=== PATIENT | male | born 1985 | race Caucasian/White ===

== ENCOUNTER 2021-04-03 16:32 | Emergency (ER) | payer SELFPAY ==
[2021-04-03 16:45] VITALS: BP 146/90; PULSE 90; RESP 16; TEMP 36.2; O2SAT 97
--- NOTE | 2021-04-03 17:12 | ED.EYEPROB ---
HPI - Eye Problem General Chief complaint: Eye Problems Stated complaint: blurry vision Time Seen by Provider: 04/03/21 17:12 Source: patient History of Present Illness HPI Narrative: 36-year-old male, contact lens user presents to the ER with a 7 day history of -- bilateral eye redness and pain. Photophobia. Watery discharge. No mucopurulent drainage. The patient stopped using his contact lenses at the start of his eye problems. No history of arthritis, inflammatory bowel disease or trauma. chief complaint: eye pain, eye redness and vision change ( Blurred vision) Onset (ago): day(s) ( 7 days ago) Onset description: gradual Duration: constant Location: both eyes Eye Symptoms: redness, pain, foreign body sensation, discharge, blurry vision and photophobia Mechanism: none Severity: moderate If Pain, Quality: burning Associated symptoms: none Treatments Prior to Arrival: none Related Data Allergies Allergy/AdvReac Type Severity Reaction Status Date / Time No Known Allergies Allergy Verified 04/03/21 16:44 Review of Systems Review of Systems: All systems reviewed & are unremarkable except as noted in HPI and below ROS unobtainable: Yes unobtainable due to endotracheal tube Constitutional: Constitutional: Reports as per HPI and Reports no additional constitutional complaints Eyes: Eyes: Reports as per HPI, Reports change in vision and Reports photophobia ENT: Reports system reviewed and no additional complaints, except as documented Cardiovascular: Cardiovascular: Reports as per HPI and Reports no additional cardiovascular complaints Respiratory: Respiratory: Reports as per HPI and Reports no additional respiratory complaints Gastrointestinal: Gastrointestinal: Reports as per HPI and Reports no additional gastrointestinal complaints Genitourinary: Genitourinary: Reports no additional male genitourinary complaints and Reports as per HPI Musculoskeletal: Musculoskeletal: Reports no additional musculoskeletal complaints Integumentary/Breasts: Skin/Breast: Reports system reviewed and no additional complaints, except as docu Neurologic: Reports system reviewed and no additional complaints, except as documented Psychiatric: Psychiatric: Reports no additional psychiatric complaints Endocrine: Endocrine: Reports no additional endocrine complaints Hematologic/Lymphatic: Hematologic/Lymphatic: Reports no additional hematologic/lymphatic complaints Allergic/Immunologic: Allergic/Immunologic: Reports no additional allergic/immunologic complaints PMFSH Past Medical History Medical History (Updated 04/03/21 @ 18:03 by Bubba Resendiz MD) Corneal abrasion Exam Const: General: no acute distress Orientation/consciousness: patient oriented x3 HENMT: Head: normal to inspection and contusion Eyes: Other: conjunctival erythema circum corneal congestion increased fluorescein uptake on both corneas pupillary size is normal. anterior chamber is clear unable to do a funduscopic examination Neck: Neck: normal visual inspection and no lymphadenopathy Chest: Chest palpation & inspection: normal inspection of the chest Resp: Effort & Inspection: normal respiratory effort Auscultation: clear to auscultation bilaterally Cardio: Rate: regular rate Rhythm: regular rhythm GI: Auscultation: normal bowel sounds : Testes: Testes normal Back/Spine/Pelvis: Back: no CVA tenderness Skin: General skin exam: normal color Rashes: no rashes Neuro: General: patient oriented x3, moves all extremities, no meningeal signs, no focal motor deficits and CN's II-XI intact bilaterally Extrem: General: normal to inspection Psych: Appearance: grossly normal Mental Status: mental status grossly normal Affect: normal affect Course Course Emergency Course: 1% lidocaine instilled in both eyes. Fluorescein strips placed in the eye increased uptake in both corneas. Vital Signs Vital signs: Vital Signs
[2021-04-03] MEDS: TETRACAINE HCL 0.5% OPHTH SOLN 4 ML BTL 1 DROP EACH EYE (17:35)
[2021-04-03] MEDS: FLUORESCEIN SOD 1 MG/STRIP EACH EYE (17:41)
[2021-04-03] MEDS: FLUORESCEIN SOD 1 MG/STRIP (17:42)
[2021-04-03] MEDS: DACRIOSE EYE IRRIGATION 118 ML BOTTLE (17:45)
== END 2021-04-03 18:20 | disposition home or self-care (01) ==
PROVIDERS: Emergency Provider Internal Medicine Critical Care Medicine
DX: H20.9 Unspecified iridocyclitis (principal); S05.00XA Injury of conjunctiva and corneal abrasion without foreign body, unspecified eye, initial encounter; H10.33 Unspecified acute conjunctivitis, bilateral
CPT/HCPCS: 99283; A9270

== ENCOUNTER 2024-04-04 16:23 | Emergency (ER) | payer SELFPAY ==
--- NOTE | ~2024-04-04 | XR_ITS ---
EXAMINATION: XR elbow LT min 3V DATE: 04/04/2024 17:01 INDICATION: Left elbow injury. Fall. TECHNIQUE: 3 views of left elbow were obtained. COMPARISON: None. FINDINGS: Bone alignment is normal. No fracture. Joint spaces are normal. No elbow joint effusion. Th ere is soft tissue swelling overlying the olecranon. IMPRESSION: 1. No fracture. Reviewed, dictated and finalized at location A. DRYING MACHINE OPERATOR IMPRESSION: 1. No fracture.
[2024-04-04 16:24] VITALS: BP 163/109; PULSE 88; RESP 16; TEMP 36.6; O2SAT 98
--- NOTE | 2024-04-04 16:34 | ED_ITS ---
HPI - Extremity Injury (Upper) General Chief Complaint: Extremity Injury, Upper Stated Complaint: left arm injury Time Seen by Provider: 04/04/24 16:34 Source: patient Mode of arrival: ambulatory Limitations: no limitations History of Present Illness HPI narrative: Patient is a 39-year-old male with a left elbow pain. Patient fell on the ice a week ago. He landed on his left elbow. No other injuries. complaint: injury to: left and elbow Onset (ago): week(s) ( One) Other injuries: none Place: outdoors Severity: moderate Severity scale (1-10): 6 Relieving factors: immobilization Exacerbating factors: movement of extremity Context: fall and direct blow Associated symptoms: denies other symptoms Related Data Allergies Allergy/AdvReac Type Severity Reaction Status Date / Time No Known Allergies Allergy Verified 04/04/24 16:26 Review of Systems Review of Systems: All systems reviewed & are unremarkable except as noted in HPI and below Constitutional: Constitutional: Reports no additional constitutional complaints Eyes: Eyes: Reports no additional eye complaints ENT: Reports system reviewed and no additional complaints, except as documented Cardiovascular: Cardiovascular: Reports no additional cardiovascular complaints Respiratory: Respiratory: Reports no additional respiratory complaints Gastrointestinal: Gastrointestinal: Reports no additional gastrointestinal complaints Genitourinary: Genitourinary: Reports no additional male genitourinary complaints Musculoskeletal: Musculoskeletal: Reports no additional musculoskeletal complaints Integumentary/Breasts: Skin/Breast: Reports system reviewed and no additional complaints, except as docu Neurologic: Reports system reviewed and no additional complaints, except as documented Psychiatric: Psychiatric: Reports no additional psychiatric complaints Endocrine: Endocrine: Reports no additional endocrine complaints Hematologic/Lymphatic: Hematologic/Lymphatic: Reports no additional hematologic/lymphatic complaints Allergic/Immunologic: Allergic/Immunologic: Reports no additional allergic/immunologic complaints PMFSH Past Medical History Medical History Corneal abrasion Exam Const: General: healthy appearing Nutritional Appearance: well nourished Orientation/consciousness: patient oriented x3 HENMT: Head: normal to inspection Ears: external ears normal Fa ce/Nose/Sinus: Normal external nose present Eyes: Conjunctivae: conjunctivae normal Pupils: Equal, round and reactive pupils present EOM: EOMs intact bilaterally Neck: Neck: normal visual inspection Chest: Chest palpation & inspection: normal inspection of the chest Resp: Effort & Inspection: normal respiratory effort and not labored Auscultation: clear to auscultation bilaterally and no crackles Cardio: Rate: regular rate Rhythm: regular rhythm Heart sounds: no murmurs GI: Inspection: non-distended GI Palp: Yes Soft to palpation and No Tenderness to palpation present (GI) Auscultation: normal bowel sounds : General: Yes bladder normal to palpation Back/Spine/Pelvis: Back: no CVA tenderness Skin: General skin exam: normal color Rashes: no rashes Wounds: no wounds Other: swollen left elbow with slight ecchymosis Neuro: General: patient oriented x3 Cranial nerves: Yes Nystagmus not present Speech: normal speech Extrem: General: abnormal to inspection Other: left double is swollen and tender to palpation with ecchymosis and bursitis swelling Psych: Mental Status: mental status grossly normal Affect: normal affect Attitude: cooperative Course Vital Signs Vital signs: Vital Signs Temperature 36.6 C 04/04/24 16:24 Pulse Rate 88 04/04/24 16:24 Respiratory Rate 16 04/04/24 16:24 Blood Pressure 163/109 H 04/04/24 16:24 Pulse Oximetry 98 04/04/24 16:24 Oxygen Delivery Room Air 04/04/24 16:24 Temperature 36.6 C 04/04/24 16:24 Pulse Rate 88 04/04/24 16:24 Respiratory Rate 16 04/04/24 16:24 Blood Pressure 163/109 H 04/04/24 16:24 Pulse Oximetry 98 04/04/24 16:24 Oxygen Delivery Room Air 04/04/24 16:24 MDM - Extremity Injury (Upper) [facility] Narrative Medical decision making narrative: patient is a 39-year-old male with left elbow injury. We will go ahead and get an x-ray. Pain control. Imaging Data Attestation: I personally reviewed and interpreted this imaging study as follows: Radiologist's impression: X-ray left elbow was negative for acute process Discharge Plan Discharge Clinical Impression: Olecranon bursitis, left elbow Patient Disposition: Home, Self-Care Condition: Stable Instructions: Antibiotic Form, Elbow Bursitis (ED) Additional Instructions: please follow-up with the primary doctor in the next week. I suggest an MRI of the left elbow if continued problems. Patient Language: Armenian Prescriptions: New methylprednisolone [Medrol (Sam)] 4 mg tablets,dose pack See Rx Instructions .ROUTE .COMPLEX Qty: 21 0RF Rx Instructions: orally per package directions hydrocodone-acetaminophen 5-325 mg tablet 1 tablet PO Q8H PRN (Reason: pain) Qty: 20 0RF Rx Instructions: 1-2 tabs per dose No Action hydrocodone-acetaminophen 5-325 mg tablet 1 tablet PO Q6H PRN (Reason: pain) Qty: 10 0RF Follow-up/Referrals: UNKNOWN,DOCTOR [Primary Care Provider] - Time of Disposition: 17:42
[2024-04-04 17:48] VITALS: BP 141/95; PULSE 76; RESP 17; TEMP 36.6; O2SAT 99
--- OUTSIDE RECORDS SUMMARY | 2024-04-04 18:37 | XMS_ITS | Patient Health Summary ---
Author Organization [facility] Address [address] [place] [address] Care Team Providers Care Equalizer Operator Name Role Phone Unavailable Primary Care Provider Unavailabl e Note from [facility],non-owned Affiliates and Associated Physician Practices is amultiple site organization consisting of ambulatory clinics and hospital sitesin [place], [place], [place] and [place]. This disclosure is being madepursuant to the Care Everywhere program and may not contain all information available regarding this patient. Last updated 17.[facility] [employer] Allergies No known active allergies Medications * Be aware that medications may not be up to date on this document. Alwaysverify current medications with the patient. * trimethoprim-polymyxin B (POLYTRIM) 10221-8.1 UNIT/ML-% ophthalmic solution (Started 04/04/2021) Instill 1 (one) drop into both eyes 2 times daily * HYDROcodone-acetaminophen (NORCO) 5-325 MG tablet(Started 04/04/2021) Take 1 tablet by mouth every 6 hours as needed Active Problems No known active problems Social History Tobacco Use Types Packs/Day Years Used Date Smoking Tobacco: Every Day Cigarettes Smokeless Tobacco: Never Sex and Gender Information Value Date Recorded Sex Assigned at Not on file Gender Identity Not on file Sexual Orientation Not on file
--- OUTSIDE RECORDS SUMMARY | 2024-04-04 18:37 | XMS_ITS | Referral Summary ---
Author Organization [facility] Address [address] [place] [address] Care Team Providers Care Slat Basket Maker Name Role Phone Unavailable Primary Care Provider Unavailabl e Source Comments [facility],non-owned Affiliates and Associated Physician Practices is amultiple site organization consisting of ambulatory clinics and hospital sitesin [place], [place], [place] and [place]. This disclosure is being madepursuant to the Care Everywhere program and may not contain all information available regarding this patient. Last updated 17.[facility] [employer] Allergies No known active allergies Medications * Be aware that medications may not be up to date on this document. Alwaysverify current medications with the patient. Medication Sig Dispensed Refills Start Date End Date Status trimethoprim-polymyxin B (POLYTRIM) 48754-7.1 UNIT/ML-% ophthalmic solutionIndications:Co rneal epithelial defect,Dry eye syndrome of both eyes,Choroidal nevus, left eye Instill 1 (one) drop into both eyes 2 times daily 10 mL 04/04/2021 Active HYDROcodone-acetaminop hen (NORCO) 5-325 MG tablet Take 1 tablet by mouth every 6 hours as needed 04/04/2021 Active Active Problems No known active problems Social History Tobacco Use Types Packs/Day Years Used Date Smoking Tobacco: Every Day Cigarettes Smokeless Tobacco: Never Sex and Gender Information Value Date Recorded Sex Assigned at Not on file Gender Identity Not on file Sexual Orientation Not on file Plan of Treatment Not on file
--- OUTSIDE RECORDS SUMMARY | 2024-04-04 18:37 | XMS_ITS | Clinical Summary ---
Author Organization [facility] Address [address] [place] [address] Care Team Providers Care Spot Welder Line Name Role Phone Unavailable Primary Care Provider Unavailabl e Source Comments [facility],non-owned Affiliates and Associated Physician Practices is amultiple site organization consisting of ambulatory clinics and hospital sitesin [place], [place], [place] and [place]. This disclosure is being madepursuant to the Care Everywhere program and may not contain all information available regarding this patient. Last updated 17.[facility] [employer] Allergies No known active allergies Medications * Be aware that medications may not be up to date on this document. Alwaysverify current medications with the patient. Medication Sig Dispensed Refills Start Date End Date Status trimethoprim-polymyxin B (POLYTRIM) 45984-1.1 UNIT/ML-% ophthalmic solutionIndications:Co rneal epithelial defect,Dry eye [...] Orientation Not on file Plan of Treatment Health Maintenance Due Date Last Done Comments LIPID TESTING 1984 HIV SCREENING 01/02/1999 HEPATITIS C SCREENING 12/29/2001 DTAP/TDAP/TD VACCINES (1 - Tdap) 01/02/2003 HEPATITIS B VACCINE (1 of 3 - 19+ 3-dose series) 01/02/2003 PNEUMOCOCCAL VACCINE (1 of 2 - PCV) 01/02/2003 COVID-19 VACCINE (2023-2 5 season) 2023 INFLUENZA VACCINE (#1) 2023 DEPRESSION SCREENING 02/10/2024 ZOSTER VACCINE (1 of 2) 01/02/2034 HIB VACCINE Aged Out No longer eligi ble based on patient's age to complete this topic HPV VACCINE Aged Out No longer eligi ble based on patient's age to complete this topic MENINGOCOCCAL (Group B) VACCINE Aged Out No longer eligible based on patient's age to complete this topic MENINGOCOCCAL VACCINE Aged Out No ahmet eli eligible based on patient's age to complete this topic
== END 2024-04-04 17:48 | disposition home or self-care (01) ==
PROVIDERS: Emergency Provider Emergency Medicine
DX: M70.22 Olecranon bursitis, left elbow (principal); W00.0XXA Fall on same level due to ice and snow, initial encounter
CPT/HCPCS: 73080; 99283